=== PATIENT | male | born 1955 | race Caucasian/White ===

== ENCOUNTER 2022-05-09 13:03 | Day surgery (SDC) | payer MEDICARE ==
[~2022-05-09] VITALS: Ht 175.3 cm; Wt 72.2 kg
[2022-05-09 13:58] VITALS: BP 152/67; PULSE 74; TEMP 97.8
[2022-05-09] MEDS ORDERED: ZYLOPRIM 300MG300 MG PO (14:01)
[2022-05-09] MEDS ORDERED: NORCO 325 MG-51 TAB PO ×2 (14:01→15:27)
[2022-05-09 15:23] VITALS: BP 115/62; PULSE 60; TEMP 97.9
[2022-05-09 15:48] VITALS: BP 147/85; PULSE 72
[2022-05-09 16:03] VITALS: BP 155/76; PULSE 72
--- NOTE | 2022-05-09 16:15 | NUR ---
1523 RETURNS TO ROOM 8 PER CART. AWAKE, ALERT. RESP UNLABORED. VITAL SIGNS OBTAINED. DENIES PAIN. ADMITS TO URINARY URGENCY. CALL LIGHT AT SIDE. 1530 ATTEMPTS TO URINATE PER URINAL WITHOUT SUCCESS. 1545 AMBULATES TO BATHROOM WITH STAND BY ASSIST. VOIDS WITHOUT DIFFICULTY. URINE LIGHT RED. 1550 TOLERATES PO JUICE WITHOUT NAUSEA. 1600 FRIEND HERE. DISCHARGE INSTRUCTIONS REVIEWED. PATIENT VERBALIZES UNDERSTANDING. COPY PROVIDED IN DISCHARGE FOLDER. 1605 SITS ON EDGE OF BED. DRESSES SELF, THEN AMBULATES TO BATHROOM. REPORTS THAT AGAIN, VOIDED WITHOUT DIFFICULTY
== END 2022-05-09 16:18 | disposition home or self-care (01) ==
LOC: SDCO 13:03
DX: N20.2 Calculus of kidney with calculus of ureter (principal); F17.210 Nicotine dependence, cigarettes, uncomplicated; Z79.899 Other long term (current) drug therapy
CPT/HCPCS: J0690; J1940; J2704; J3010; J7120